=== PATIENT | female | born 1975 ===

== ENCOUNTER 2020-05-03 14:36 | Inpatient (IN) | payer OTHER ==
[~2020-05-03] VITALS: Ht 160 cm; Wt 68.0 kg
[2020-05-03] MEDS ORDERED: WELLBUTRIN SR150 MG PO (15:18)
[2020-05-03] MEDS ORDERED: LAMICTAL100 M1 PO (15:18)
--- NOTE | 2020-05-03 15:18 | NUR ---
SE RECIBE PACIENTE ALERTA, ORIENTADA X 3 ESFERAS REFIERE TENER TRAY DOLOR ABDOMINAL PTE REFIERE ESTUVO HOSPITALIZADA POR PERFORACION DE INTESTINO SE UBICA EN AREA DE OBSERVACION.
--- NOTE | 2020-05-03 16:52 | NUR ---
PTE ALERTA Y ORIENTADA POR LANDEN ESFERAS CON BUEN PATRON RESPIRATORIO. SE LE ORIENTA SOBRE TRATAMIENTO MEDICAMENTO E INSTRUCCIONES A SEGUIR, SHERWIN REFIERE ENTENDER. SE LE COLECTA MUETSRAS, SE CANALIZA Y SE ADMINISTRA MEDICAMETNO TESSIE ORDEN MEDICA. AREA DE CANALIZACION PERMANECE PATENTE, YI DE EDEMA Y ERITEMA. SE MANTIENE BAJO OBSERVACION POR CAMBIOS. PENDIENTE CT
== END 2020-05-12 14:36 | disposition home or self-care (01) | DRG 392 ==
LOC: ER 14:36 → SURG 20:14
PROVIDERS: ADMIT Internal Medicine; ATTEND Internal Medicine
PROC: BW21ZZZ Computerized Tomography (CT Scan) of Abdomen and Pelvis (ICD-10-PCS; principal; 2020-05-03)
PROC: BW21Y0Z Computerized Tomography (CT Scan) of Abdomen and Pelvis using Other Contrast, Unenhanced and Enhanced (ICD-10-PCS; 2020-05-10)
DX: K57.20 Diverticulitis of large intestine with perforation and abscess without bleeding (principal)

== ENCOUNTER 2020-11-07 20:16 | Emergency (ER) | payer OTHER ==
[~2020-11-07] VITALS: Ht 160 cm; Wt 59.0 kg
[~2020-11-07 20:16] MED LIST: LAMICTAL100 M1 PO; WELLBUTRIN SR150 MG PO
[2020-11-07] MEDS ORDERED: AMBIEN10 MG PO (20:36)
[2020-11-08] MEDS ORDERED: PROTONIX40 MG PO (00:12)
== END 2020-11-08 00:42 | disposition home or self-care (01) ==
LOC: ER 20:16
DX: K57.30 Diverticulosis of large intestine without perforation or abscess without bleeding (principal); R10.9 Unspecified abdominal pain
CPT/HCPCS: 74177; Q9965

== ENCOUNTER 2021-10-19 13:27 | Emergency (ER) | payer OTHER ==
[~2021-10-19] VITALS: Ht 160 cm; Wt 59.0 kg
[~2021-10-19 13:27] MED LIST changes: +AMBIEN10 MG PO; +PROTONIX40 MG PO
[2021-10-19] MEDS ORDERED: INTESTINEX680 M1 PO (19:07)
[2021-10-19] MEDS ORDERED: CIPRO500 MG PO (19:07)
[2021-10-19] MEDS ORDERED: PEPCID AC20 MG PO (19:07)
== END 2021-10-19 19:19 | disposition home or self-care (01) ==
LOC: ER 13:27
DX: R10.32 Left lower quadrant pain (principal)